=== PATIENT | female | born 1955 | race Caucasian/White ===

== ENCOUNTER 2016-07-02 13:58 | Emergency (ER) | payer OTHER ==
[~2016-07-02] VITALS: Ht 149.9 cm; Wt 83.5 kg
[~2016-07-02 13:58] MED LIST: CARI350T PO; DICY20TA29 PO; LEVO125T PO; LISI-167 PO; OXYC20TA2 PO; SIMV20TA PO
[2016-07-02] MEDS ORDERED: KETOROLAC 30 MG/1 ML IM ONE (15:00)
[2016-07-02] MEDS ORDERED: ALBUTEROL/IPRATROPIUM 2.5MG/0.5MG, 3 ML NPPB ONE (15:00)
[2016-07-02] MEDS ORDERED: ALBUTEROL/IPRATROPIUM 2.5MG/0.5MG, 3 ML ONE (15:22)
[2016-07-02] MEDS ORDERED: KETOROLAC 30 MG/1 ML ONE (15:31)
[2016-07-02 16:22] VITALS: BP 105/64
== END 2016-07-02 16:27 | disposition home or self-care (01) ==
LOC: ED 15:50
DX: M75.31 Calcific tendinitis of right shoulder (principal); I10 Essential (primary) hypertension; E78.00 Pure hypercholesterolemia, unspecified; K21.9 Gastro-esophageal reflux disease without esophagitis; J44.9 Chronic obstructive pulmonary disease, unspecified; Z88.2 Allergy status to sulfonamides; F17.200 Nicotine dependence, unspecified, uncomplicated
CPT/HCPCS: 73030; 82962; 94640; 96372; 99285; J1885; J7620

== ENCOUNTER 2020-11-19 13:09 | Emergency (ER) | payer MEDICARE, OTHER ==
[~2020-11-19] VITALS: Ht 149.9 cm; Wt 88.5 kg
[2020-11-19 14:16] LABS: BASOPHILS % (AUTO) 1 % (0-1); EOSINOPHILS % (AUTO) 3 % (1-7); LYMPHOCYTES % (AUTO) 15 % (22-44); MEAN CORPUSCULAR HEMOGLOBIN 31.8 pg (27.0-34.8); MEAN CORPUSCULAR HGB CONC 33.9 g/dL (32.4-35.8); MEAN PLATELET VOLUME 7.6 fL (7.4-10.4); MONOCYTES % (AUTO) 8 % (2-9); NEUTROPHILS % (AUTO) 72 % (42-75); PLATELET COUNT 284 x10^3/uL (130-400); RED BLOOD COUNT 5.32 x10^6/uL (3.82-5.3); RED CELL DISTRIBUTION WIDTH 14.3 % (9.6-15.2)
[2020-11-19 14:22] LABS: ALBUMIN 3.4 g/dL (3.4-5.0); ANION GAP 7 mmol/L (5-15); CALCIUM 9.3 mg/dL (8.5-10.1); CHLORIDE 99 mmol/L (98-107)
[2020-11-19 14:24] LABS: PROTHROMBIN TIME 10.7 Seconds (9.6-11.5)
[2020-11-19 14:28] LABS: ALANINE AMINOTRANSFERASE 38 U/L (12-78); ALKALINE PHOSPHATASE 111 U/L (45-117); BILIRUBIN,TOTAL 0.6 mg/dL (0.2-1.0); CREATININE 1.08 mg/dL (0.55-1.02); TOTAL PROTEIN 8.1 g/dL (6.4-8.2); TROPONIN I < 0.015 ng/mL (0.000-0.045)
[2020-11-19 14:50] LABS: HCT (SEDRATE) 49.9 % (34.6-47.8)
[2020-11-19] MEDS ORDERED: GADOTERATE 10 MMOL/20ML SYR ONE (15:00)
--- NOTE | 2020-11-19 16:30 | NUR ---
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
--- NOTE | 2020-11-19 17:07 | NUR ---
PT TO ROOM 20 W/ C/O LOSS OF VISION 1/4 TO L EYE X 4 DAYS. PT NOW HAS C/O HEBERT TO THE LEFT FRONTAL SIDE OF HEAD. PT RESTING ON YESSICA. NADN. MARICEL CHRISTIANSEN AT BEDSIDE FOR EVAL.
[2020-11-19 17:15] VITALS: BP 126/75
[2020-11-19] MEDS ORDERED: ASPIRIN 81 MG TABLET CHEW ONE (17:23)
[2020-11-19] MEDS ORDERED: ASPIRIN 81 MG TABLET CHEW PO ONE (17:30)
== END 2020-11-19 17:32 | disposition home or self-care (01) ==
LOC: ED 17:26
DX: H34.12 Central retinal artery occlusion, left eye (principal); R51.9 Headache, unspecified; E11.9 Type 2 diabetes mellitus without complications; K21.9 Gastro-esophageal reflux disease without esophagitis; E78.00 Pure hypercholesterolemia, unspecified; J44.9 Chronic obstructive pulmonary disease, unspecified; I10 Essential (primary) hypertension; Z86.39 Personal history of other endocrine, nutritional and metabolic disease; F17.200 Nicotine dependence, unspecified, uncomplicated
CPT/HCPCS: 36415; 70544; 70553; 80053; 83605; 84484; 85025; 85610; 85651; 85730; 99285; A9575